=== PATIENT | female | born 1945 | race Caucasian/White ===

== ENCOUNTER 2017-09-25 08:28 | Day surgery (SDC) | payer OTHER ==
[2017-09-25] MEDS: TETRACAINE 0.5% UNIT-DOSE OP PRN ×2 (08:43→09:24)
[2017-09-25] MEDS: BETADINE OPTH PREP OP PRN ×2 (08:43→09:08)
[2017-09-25] MEDS: CYCLOGYL 2% OPTH OP PRN ×3 (08:44→08:54)
[2017-09-25] MEDS ORDERED: BRIMONIDINE TARTRATE 0.2% OPTH SOL OP PRN (08:50)
[2017-09-25] MEDS ORDERED: LIDOCAINE 1% 20 ML MDV ID STA (08:50)
[2017-09-25] MEDS ORDERED: LIDOCAINE 1%/PHENYLEPHRINE 1.5% BSS (SURGERY) INTRAOCULA ONE (08:50)
[2017-09-25] MEDS ORDERED: ZOFRAN 4 MG/2 ML IVP ONE (08:50)
[2017-09-25] MEDS ORDERED: DEX-MOXI-KETOR OPTH INJ 1/0.5/0.4 MG/ML IO ONE (08:50)
[2017-09-25] MEDS ORDERED: BSS WITH EPINEPHRINE OP ONE (08:50)
[2017-09-25] MEDS ORDERED: TORADOL ONE (09:14)
[2017-09-25] MEDS ORDERED: SUBLIMAZE ONE (09:14)
[2017-09-25] MEDS ORDERED: VERSED ONE (09:14)
[2017-09-25 12:44] VITALS: TEMP 98.3
[2017-09-30 07:40] VITALS: BP 116/78
== END 2017-09-25 10:45 | disposition home or self-care (01) ==
LOC: SURG 08:28
PROVIDERS: ATTEND Ophthalmology
DX: H25.812 Combined forms of age-related cataract, left eye (principal)